=== PATIENT | male | born 1945 | race Caucasian/White ===

== ENCOUNTER 2021-04-21 18:17 | Emergency (ER) | payer MEDICARE ==
[~2021-04-21] VITALS: Ht 170.2 cm; Wt 55.0 kg
[~2021-04-21 18:17] MED LIST: ACID1TAB3 PO; ALEN70TA77 PO; AMLO-211 PO; AMOX1TAB64 PO; APIX5TAB PO; ASPI81TA45 PO; ATOR40TA78 PO; CLON0.12 PO; CLOP75TA PO; DONE5TAB14 PO; HYDR-3343 PO; LIDO700A20 TD; LOSA100T14 PO; PANT40TA6 PO; POTA20TA6 PO
--- NOTE | 2021-04-21 18:35 | NUR ---
PT RAY FROM [facility] WHERE HE WAS PLACED ON A LEGAL HOLD AFTER TRYING TO LEAVE AMA. FAMILY UNABLE TO CARE FOR PT. PT DENIES SI, DENIES HI. PT A&O, RESPS EVEN AND UNLABRED, VSS, NADN. DENIES ANY PAIN OR DISCOMFORT.
[2021-04-21 18:36] VITALS: BP 134/73
--- NOTE | 2021-04-21 18:56 | NUR ---
BEDSIDE REPORT GIVEN TO AMY BABB
--- NOTE | 2021-04-21 19:29 | NUR ---
Sehela w/ Carmelita from [facility]. Updated that pt is agreeable to return back to facility. all questions answered. Dr. Hoskins is accepting doc. Pt will be returning to Room #105.
== END 2021-04-21 21:08 | disposition home or self-care (01) ==
LOC: ED 18:47
DX: R62.7 Adult failure to thrive (principal); I48.91 Unspecified atrial fibrillation; Z90.49 Acquired absence of other specified parts of digestive tract; Z86.718 Personal history of other venous thrombosis and embolism; Z85.46 Personal history of malignant neoplasm of prostate; Z85.828 Personal history of other malignant neoplasm of skin
CPT/HCPCS: 99283

== ENCOUNTER 2021-05-31 09:16 | Emergency (ER) | payer MEDICARE ==
[~2021-05-31] VITALS: Ht 170.2 cm; Wt 55.0 kg
[~2021-05-31 09:16] MED LIST changes: +LEVE500T53 PO; +POTA-143 PO; -POTA20TA6 PO
[2021-05-31 09:47] VITALS: BP 162/74
--- NOTE | 2021-05-31 09:56 | NUR ---
pt resting in bed. sister at bedside. vss and bumper pads on bed
[2021-05-31 10:16] LABS: BASOPHILS % (AUTO) 2 % (0-1); EOSINOPHILS % (AUTO) 1 % (1-7); LYMPHOCYTES % (AUTO) 14 % (22-44); MEAN CORPUSCULAR HGB CONC 33.2 g/dL (33.2-36.2); MEAN PLATELET VOLUME 7.1 fL (7.4-10.4); MONOCYTES % (AUTO) 11 % (2-9); NEUTROPHILS % (AUTO) 73 % (42-75); PLATELET COUNT 198 x10^3/uL (130-400); RED BLOOD COUNT 4.39 x10^6/uL (4.38-5.82); RED CELL DISTRIBUTION WIDTH 14.3 % (9.4-14.8)
[2021-05-31 10:29] LABS: ALBUMIN 3.4 g/dL (3.4-5.0); ANION GAP 5 mmol/L (5-15); CALCIUM 9.3 mg/dL (8.5-10.1); CHLORIDE 106 mmol/L (98-107); CREATININE 0.95 mg/dL (0.7-1.3)
== END 2021-05-31 11:48 | disposition home or self-care (01) ==
LOC: ED 09:23
DX: G40.804 Other epilepsy, intractable, without status epilepticus (principal); I10 Essential (primary) hypertension; I48.91 Unspecified atrial fibrillation
CPT/HCPCS: 36415; 80048; 82040; 83605; 85025; 93005; 99284